=== PATIENT | female | born 1985 | race Caucasian/White ===

== ENCOUNTER 2017-03-02 05:25 | Inpatient (IN) | payer BC ==
[~2017-03-02 05:25] MED LIST: cefOXitin 2 GM in Sodium Chloride 0.9% 50 ML IV ONE
[2017-03-02] MEDS ORDERED: Celecoxib 200 MG Cap PO SCH (06:00)
[2017-03-02] MEDS ORDERED: Scopolamine 1.5 MG Transdermal Patch TOP SCH (06:00)
[2017-03-02] MEDS ORDERED: Gabapentin 400 MG Cap PO SCH (06:00)
[2017-03-02] MEDS ORDERED: Acetaminophen 500 MG Tab PO SCH (06:00)
[2017-03-02] MEDS ORDERED: Dextrose 5%-Lactated Ringers 1,000 ML IV SCH (06:15)
[2017-03-02] MEDS ORDERED: cefOXitin 2 GM Vial ONE (06:45)
[2017-03-02] MEDS ORDERED: Albuterol/Ipratropium 3.0-0.5 MG/3 ML Neb Soln NEB ONE (07:07)
[2017-03-02] MEDS ORDERED: Rocuronium 50 MG/5 ML Vial ONE (07:14)
[2017-03-02] MEDS ORDERED: Succinylcholine 200 MG/10 ML MDV ONE (07:14)
[2017-03-02] MEDS ORDERED: Propofol 200 MG/20 ML SDV ONE (07:14)
[2017-03-02] MEDS ORDERED: Glycopyrrolate 0.2 MG/ML 5 ML MDV ONE (07:14)
[2017-03-02] MEDS ORDERED: Ondansetron 4 MG/2 ML SDV ONE (07:14)
[2017-03-02] MEDS ORDERED: Neostigmine Methylsulfate 1 MG/ML 5 ML Syringe ONE (07:14)
[2017-03-02] MEDS ORDERED: Dexamethasone 4 MG/ML SDV ONE (07:14)
[2017-03-02] MEDS ORDERED: cefOXitin 2 GM in Sodium Chloride 0.9% 50 ML IV ONE (07:45)
[2017-03-02] MEDS ORDERED: Ketamine 500 MG/5 ML MDV IV SCH (08:00)
[2017-03-02] MEDS ORDERED: Ropivacaine 60 ML, Dexamethasone 8 MG, EPINEPHrine 0.4 MG, Sodium Chloride 0.9% 17.6 ML NERVRT SCH ×4 (08:00)
[2017-03-02] MEDS ORDERED: Lidocaine 2% 100 MG/5 ML Syringe IVPUSH ONE (08:00)
[2017-03-02] MEDS ORDERED: fentaNYL 100 MCG/2 ML SDV IVPUSH ONE (09:41)
[2017-03-02] MEDS ORDERED: hydrOXYzine HCl 100 MG/2 ML SDV IM ONE (09:41)
[2017-03-02] MEDS: Lidocaine 0.4%/D5W 2 GM/500 ML BAG IV SCH (10:30)
[2017-03-02] MEDS: Dextrose 5%-Lactated Ringers 1,000 ML IV SCH ×2 (10:30→14:11)
[2017-03-02] MEDS ORDERED: Labetalol 20 MG/4 ML Syringe IVPUSH PRN (12:00)
[2017-03-02] MEDS ORDERED: hydrOXYzine HCl 100 MG/2 ML SDV IM PRN (12:00)
[2017-03-02] MEDS ORDERED: Metoclopramide 10 MG/2 ML SDV IVPUSH PRN (12:00)
[2017-03-02] MEDS ORDERED: Ondansetron 4 MG/2 ML SDV IVPUSH PRN (12:00)
[2017-03-02] MEDS ORDERED: diphenhydrAMINE 50 MG/ML SDV IVPUSH PRN (12:00)
[2017-03-02] MEDS: SCOPOLAMINE PATCH CHECK TOP SCH (12:52)
[2017-03-02] MEDS: Gabapentin 250 MG/5 ML Solution ML 470 ML Bottle PO SCH ×2 (14:11→20:16)
[2017-03-02] MEDS: Pantoprazole 40 MG Vial IVPUSH SCH (14:13)
[2017-03-02] MEDS: cefOXitin 2 GM in Sodium Chloride 0.9% 50 ML IV SCH ×2 (14:23→20:16)
[2017-03-02] MEDS ORDERED: MVI, Adult with Vitamin K 10 ML, Thiamine 200 MG, Chromium/Copper/Mang/Selen/Zn 1 ML in... IV SCH ×4 (16:00)
[2017-03-02] MEDS: LORazepam 1 MG Tab PO PRN (16:39)
[2017-03-02] MEDS: Acetaminophen Soln 650 MG/20.3 ML UD Cup PO SCH ×2 (16:39→21:20)
[2017-03-02] MEDS: Heparin Sodium 5,000 Units/ML Vial SUBCUT SCH (17:14)
[2017-03-02] MEDS: Citalopram 20 MG Tab PO SCH (20:17)
[2017-03-03] MEDS: Dextrose 5%-Lactated Ringers 1,000 ML IV SCH ×2 (00:06→05:47)
[2017-03-03] MEDS: Lidocaine 0.4%/D5W 2 GM/500 ML BAG IV SCH (00:30)
[2017-03-03] MEDS: cefOXitin 2 GM in Sodium Chloride 0.9% 50 ML IV SCH ×2 (00:36→07:19)
[2017-03-03] MEDS ORDERED: Iohexol 647 MG/ML 50 ML SDV PO SCH (03:00)
[2017-03-03] MEDS: Acetaminophen Soln 650 MG/20.3 ML UD Cup PO SCH ×4 (03:42→21:46)
[2017-03-03] MEDS: Heparin Sodium 5,000 Units/ML Vial SUBCUT SCH ×2 (05:47→18:12)
[2017-03-03] MEDS ORDERED: Dextrose 5%-Lactated Ringers 1,000 ML IV SCH (07:13)
[2017-03-03] MEDS: LORazepam 1 MG Tab PO PRN ×2 (07:17→21:45)
[2017-03-03] MEDS ORDERED: Celecoxib 200 MG Cap PO SCH ×3 (08:00→17:00)
--- NOTE | 2017-03-03 08:33 | CR ---
UGI wo KUB HISTORY: eval R -Y GBP FINDINGS: After administration of oral contrast, upright views were obtained. Post operative changes gastric bypass. Surgical drains in place. No evidence for leak. Contrast passes freely into proximal small bowel loops. IMPRESSION: No evidence for leak or obstruction.
[2017-03-03] MEDS: Gabapentin 250 MG/5 ML Solution ML 470 ML Bottle PO SCH ×3 (09:06→21:45)
[2017-03-03] MEDS: SCOPOLAMINE PATCH CHECK TOP SCH (09:06)
--- NOTE | 2017-03-03 09:57 | PN ---
DATE OF SERVICE: 03/03/2017 SUBJECTIVE: Anahi is postop day #1. Her upper GI this morning was normal. She has been up walking twice. Oral intake, a step 1 gastric bypass diet, was 380 mL. Her urine output was 2750. Her ANABEL drain put out 60 mL of a light pink serosanguineous drainage. She has been afebrile. REVIEW OF SYSTEMS: Remainder of review of systems negative for any pertinent positives and negatives. OBJECTIVE: GENERAL: Anahi Urbano is a 31-year-old female. She is alert and orientated. VITAL SIGNS: TPR is 98.9, 65, 18. Blood pressure 149/102. Height is 5 feet 5 inches, weight is 316 pounds 8 ounces at the time of admission. HEENT: Negative. NECK: Supple. HEART: Regular rate and rhythm. LUNGS: Clear. ABDOMEN: Dressings dry and intact. Abdominal binder is on. ANABEL drain is intact draining a light pink serous drainage as noted above. EXTREMITIES: Without peripheral edema and SCDs are on. ASSESSMENT: Laparoscopic Isabel-en-Y gastric bypass surgery, liver biopsy, repair of diaphragmatic hernia, and excision of mediastinal lipoma, for morbid obesity, hepatomegaly, diaphragmatic hernia, and mediastinal lipoma. Date of surgery, 03/02/2017; Brendan Osborn M.D. PLAN: 1. Decrease IV to 100 mL per hour. 2. Step-2 gastric bypass diet without cereal. 3. Dressing off. 4. May shower. 5. Three med cups at bedside to drink 1 every 20 minutes or 3 per hour and to record at bedside. 6. Good pulmonary toilet encouraged. 7. To ambulate at least 6 times daily in the [place]. 8. We will evaluate p.r.n. or in the a.m. Elle Cowart PA-C /[id number]
[2017-03-03] MEDS: Pantoprazole 40 MG Vial IVPUSH SCH (13:17)
[2017-03-03] MEDS ORDERED: MVI, Adult with Vitamin K 10 ML, Thiamine 200 MG, Chromium/Copper/Mang/Selen/Zn 1 ML in... IV SCH ×4 (16:00)
[2017-03-03] MEDS: Citalopram 20 MG Tab PO SCH (21:44)
[2017-03-04] MEDS: Heparin Sodium 5,000 Units/ML Vial SUBCUT SCH (05:12)
[2017-03-04] MEDS: Acetaminophen Soln 650 MG/20.3 ML UD Cup PO SCH ×2 (05:12→09:02)
[2017-03-04] MEDS ORDERED: Pantoprazole 40 MG Tab.CR PO SCH (07:30)
[2017-03-04 07:31] VITALS: BP 119/68
[2017-03-04] MEDS: SCOPOLAMINE PATCH CHECK TOP SCH (08:58)
[2017-03-04] MEDS: Gabapentin 250 MG/5 ML Solution ML 470 ML Bottle PO SCH (08:58)
[2017-03-04] MEDS ORDERED: Cyanocobalamin (Vitamin B12) 1,000 MCG/ML SDV IM ONE (09:00)
[2017-03-04] MEDS ORDERED: Magnesium Hydroxide 400 MG/5 ML Susp 30 ML Cup PO ONE (10:30)
--- NOTE | 2017-03-06 08:05 | DISCH ---
FINAL DIAGNOSES: 1. Morbid obesity. 2. Marked hepatomegaly. 3. Paraesophageal diaphragmatic hernia. 4. Mediastinal lipoma. 5. History of anxiety. 6. Polycystic ovary syndrome. OPERATIVE PROCEDURES: Done on 03/02/2017 were diagnostic laparoscopy with: 1. Laparoscopic Isabel-en-Y gastric bypass and long-limb gastroenterostomy. 2. Chase-Cut needle liver biopsy. 3. Repair of paraesophageal diaphragmatic hernia. 4. Excision of mediastinal lipoma. HOSPITAL COURSE: This is a 31-year-old female presenting with longstanding morbid obesity and increasingly significant comorbidities. After preop evaluations and discussion, she wished to proceed with a gastric bypass procedure. This was done on the date of admission with the above added procedures done concurrently. Postoperatively, she has had no significant problems. She went through the enhanced recovery process nicely, requiring no narcotics postoperatively. She will be discharged home with a combination of Neurontin, Celebrex, and Tylenol for pain. Otherwise, we will have her hold the Mobic until she is off the Celebrex. It is possible that she may wish to use the Celebrex long-term, that is something which can be decided overtime. While she is on the Celebrex and/or Mobic, she probably should continue on the omeprazole. Otherwise, we will continue the Ativan, citalopram, and Depo shots as preoperatively. She will be discharged with a step-2 diet and followup with Elle Cowart at [facility] on 03/13/2017. She will be instructed to hold on her vitamins and other supplements until after the first appointment.
--- NOTE | 2017-03-07 12:09 | OR ---
DATE OF PROCEDURE: 03/02/2017 PREOPERATIVE DIAGNOSIS: Morbid obesity. POSTOPERATIVE DIAGNOSES: 1. Morbid obesity. 2. Marked hepatomegaly. 3. Paraesophageal diaphragmatic hernia. 4. Mediastinal lipoma. OPERATIVE PROCEDURE: 1. Laparoscopic Isabel-en-Y gastric bypass along with gastroenterostomy (95647). 2. Chase-Cut needle liver biopsy (60597). 3. Repair of paraesophageal diaphragmatic hernia (88450). 4. Excision of mediastinal lipoma (00851). ANESTHESIA: General. RETAIL DISTRICT MANAGER: Elle Cowart PA-C and NII Albrecht. INDICATION FOR PROCEDURE: This is a 31-year-old presenting with longstanding morbid obesity and increasingly significant comorbidities. After preoperative evaluation and discussion, she wished to proceed with a gastric bypass procedure. Potential risks of procedure including bleeding, infection, leaks from various GI tract closures, problems with bowel obstruction over time as well as possibility of cardiopulmonary, septic, or hemorrhagic complications leading to were discussed, and the patient wishes to proceed. DESCRIPTION OF PROCEDURE: The patient was taken to the operating room. After general endotracheal anesthesia was induced, she was placed in a lithotomy position. Using continuous ultrasound, bilateral transversus abdominis plane blocks were placed in subcostal location using the standard solution. The abdomen was then prepped and draped, and the orogastric tube was placed. At 15 cm inferior, 5 cm left of xiphoid process, transverse incision was made and peritoneal cavity was entered under direct vision with an Optiview trocar and inflated to 15 mmHg pressure with CO2. Laparoscope was then reinserted. No underlying trocar insertion site injuries were seen. Following this, 5 additional trocars were placed across the upper and mid abdomen, and general exploration was undertaken. The patient was noted to have marked hepatomegaly with liver volume being roughly 2 to 3 times normal and liver grossly fatty infiltrated. Chase-Cut needle biopsies were obtained from left lobe of liver. Minimal bleeding from the biopsy sites was controlled with electrocautery. The omentum was then divided in the midline up to the level of the transverse colon. This allowed identification of the small bowel to the ligament of Treitz. Small bowel was then traced out 100 cm distal to that point and was divided transversely with a MIAH stapler. Small bowel was then traced out an additional 150 cm, where the [id number] enteroenterostomy was accomplished with internal firing of the Endo-MIAH 60 mm stapler. The common opening was then closed transversely with the same stapler, angles anastomosed, and the mesenteric defect approximated with some 0 Ethibond stitch, along with fibrin sealant. The divided end of the Isabel limb was from the mesentery for a few centimeters, which allowed an antecolic position of the Isabel limb up to the level of the gastroesophageal junction without tension. The liver was then retracted anteriorly. The patient was noted to have a moderate-sized paraesophageal diaphragmatic hernia. This contained some perigastric fat and a portion of the gastric fundus, prolapsing in a plane anterior to the course of the esophagus. This was reduced and the peritoneum overlying it incised and reflected downward. The anterior repair of the diaphragmatic hernia was accomplished with 0 Ethibond sutures, reinforced with PTFE pledgets. During the course of the dissection the mediastinal lipoma was encountered, which was dissected free and excised as well. The gastrointestinal balloon catheter was then inflated to 15 mL and pulled up snugly against the EG junction. The gastric wall over the apex balloon was then marked with electrocautery, and balloon catheter was deflated and pulled up from the esophagus. The lesser omental tissue was then divided adjacent to gastric cardia, allowing dissection behind the stomach at that level. Pouch formation was initiated with transverse firing of the MIAH stapler at the level of the cauterized marked in the gastric cardia. This was then completed with 2 additional firings of MIAH stapler up to and through the angle of His. Upon completion of the pouch, both staple lines were noted to be intact. The anvil of a 25 mm EEA stapler was then attached to a Marshall sump-type tube, the latter was taken down through a small opening in the gastric pouch, allowing the anvil likewise to be pulled down to within the gastric pouch. The divided end of the Isabel limb was then opened and main body of the EEA stapler passed several centimeters into the lumen of small bowel, brought up the anvil and united with it, thus creating the gastrojejunostomy. Upon removal of stapler, double donuts of mucosa were noted within it. The small bowel was closed off with a vascular staple line. Gastrojejunostomy was then reinforced with some 3-0 Vicryl seromuscular stitch, along with fibrin sealant ,and a leak test was accomplished with injection of 120 mL of air into the gastric pouch while submerged with cefoxitin-containing saline solution. No leaks were identified. A single Vic-He drain was then taken out through the left subcostal trocar site and placed adjacent to the gastrojejunostomy and from there up into the splenic fossa. The remaining trocars were then removed. The peritoneal cavity was deflated, the incisions were closed at the skin level with 4-0 Vicryl stitch, and the drains were affixed with 4-0 Vicryl stitch as well. The patient was taken to the recovery room in satisfactory condition. Physician power plant assistant, Elle Cowart PA-C, played an essential role in assisting in this case, helping to position the patient, retract structures as needed, as well as suturing and cutting sutures when indicated. Her presence improved the patient's safety and decreased operative time. Brendan Osborn MD /[id number]
== END 2017-03-04 10:30 | disposition home or self-care (01) | DRG 403 ==
LOC: JP.SDS 05:25 → JP.SDSSCHI 05:25 → EDSTATUS 07:30 → JP.2SS 09:50
PROVIDERS: ADMIT Surgery; ATTEND Surgery
PROC: 0D164ZA Bypass Stomach to Jejunum, Percutaneous Endoscopic Approach (ICD-10-PCS; principal; 2017-03-02)
PROC: 0BQR4ZZ (ICD-10-PCS; principal; 2017-03-02)
PROC: 3E0T3BZ Introduction of Anesthetic Agent into Peripheral Nerves and Plexi, Percutaneous Approach (ICD-10-PCS; principal; 2017-03-02)
PROC: 0FB24ZX Excision of Left Lobe Liver, Percutaneous Endoscopic Approach, Diagnostic (ICD-10-PCS; principal; 2017-03-02)
PROC: 0WBC4ZX Excision of Mediastinum, Percutaneous Endoscopic Approach, Diagnostic (ICD-10-PCS; principal; 2017-03-02)
PROC: 0BQS4ZZ (ICD-10-PCS; principal; 2017-03-02)
DX: E66.01 Morbid (severe) obesity due to excess calories (principal); Z68.43 Body mass index [BMI] 50.0-59.9, adult; K42.9 Umbilical hernia without obstruction or gangrene; F41.9 Anxiety disorder, unspecified; E28.2 Polycystic ovarian syndrome; R16.0 Hepatomegaly, not elsewhere classified; K44.9 Diaphragmatic hernia without obstruction or gangrene; D17.4 Benign lipomatous neoplasm of intrathoracic organs
CPT/HCPCS: 36415; 74240; 74240-26; 82962; 86850; 86900; 86901; 88304; 88307; 88313; 94762; A9270-GY; C9113; J0171; J0330; J0694; J1100; J1644; J2001; J2405; J2704; J2710; J2795; J3010; J3410; J3411; J7030; J7042; J7050; J7620; Q9967